=== PATIENT | female | born 1945 | race Caucasian/White ===

== ENCOUNTER 2020-05-04 13:56 | Inpatient (IN) ==
[2020-05-04] MEDS ORDERED: *HR* Atropine Sulfate 1 MG/10 ML SYRINGE ONE (16:25)
[2020-05-04] MEDS ORDERED: Ondansetron 4 MG/2 ML VIAL IVP PRN (16:38)
[2020-05-04] MEDS ORDERED: Acetaminophen 325 MG TABLET PO PRN (16:38)
[2020-05-04] MEDS ORDERED: Naloxone 0.4 MG/ML INJ IVP PRN (16:38)
[2020-05-04] MEDS ORDERED: Ringers Solution, Lactated 1,000 ML ONE ×2 (16:50→17:44)
[2020-05-04 16:57] LABS: VBG HCO3 27 mEq/L (21-27); VBG PCO2 60 mmHg (41-51); VBG PH 7.26 pH Units (7.32-7.42); VBG PO2 92 mmHg (25-50)
[2020-05-04 17:07] LABS: Basophils # 0.1 K/mcL (0.0-0.2); Basophils % 0.9 %; Eosinophils # 0.2 K/mcL (0.0-0.6); Eosinophils % 2.3 %; Hematocrit 39.7 % (35.3-44.9); Hemoglobin 12.3 g/dL (11.5-15.4); Immature Granulocytes % 0.4 % (0-4); Lymphocytes # 3.2 K/mcL (0.6-4.6); Lymphocytes % 39.2 %; Mean Corpuscular Hemoglobin 29.3 pg (28.0-33.3); Mean Corpuscular Volume 94.5 fL (83.0-100.0); Mean Platelet Volume 9.5 fL (9.4-12.4); Monocytes # 0.6 K/mcL (0.0-1.3); Monocytes % 7.7 %; Platelet Count 306 K/mcL (140-400); Red Cell Distribution Width 15.6 % (11.5-14.5); Segmented Neutrophils % 49.5 %; White Blood Count 8.1 K/mcL (4.3-11.1)
[2020-05-04 17:21] LABS: Alanine Aminotransferase 10 Units/L (7-52); Albumin 2.9 g/dL (3.5-5.7); Albumin/Globulin Ratio 1.1 (1.1-2.2); Alkaline Phosphatase 65 Units/L (34-104); Aspartate Amino Transferase 16 Units/L (13-39); BUN/Creatinine Ratio 27 (6-26); Bilirubin,Indirect 0.3 mg/dL (0.0-1.0); Bilirubin,Total 0.3 mg/dL (0.3-1.0); Blood Urea Nitrogen 13 mg/dL (8-23); Calcium 7.8 mg/dL (8.6-10.3); Carbon Dioxide 26 mEq/L (23-29); Chloride 112 mEq/L (98-107); Globulin 2.7 g/dL (2.4-3.5); Glucose 117 mg/dL (70-105); Magnesium 1.9 mg/dL (1.6-2.6); Osmolality,Calculated 299 (280-300); Potassium 3.8 mEq/L (3.5-5.1); Sodium 144 mEq/L (136-145); Total Protein 5.6 g/dL (6.4-8.9); Troponin I < 0.03 ng/mL (< 0.04); eGFR For African Americans > 60 (> 60); eGFR For Non-African Americans > 60 (> 60)
[2020-05-04 17:35] LABS: Thyroid Stimulating Hormone 4.712 mcIU/mL (0.340-5.600)
[2020-05-04] MEDS ORDERED: Hydrocortisone Sodium Succ 100 MG/2 ML VIAL IVP ONE (18:15)
[2020-05-04] MEDS ORDERED: Hydrocortisone Sodium Succ 100 MG/2 ML VIAL ONE (18:17)
[2020-05-04] MEDS ORDERED: FentaNYL (PF) 1,000 MCG/100 ML IV.SOLN IVC SCH (18:30)
[2020-05-04] MEDS ORDERED: Midazolam HCl 50 MG/100 ML IV.SOLN IVC SCH (18:30)
[2020-05-04] MEDS ORDERED: *HR* Midazolam HCl 2 MG/2 ML VIAL IVP ONE (19:19)
[2020-05-04] MEDS ORDERED: *HR* Midazolam HCl 2 MG/2 ML VIAL IV ONE (19:19)
[2020-05-04] MEDS ORDERED: *HR* Etomidate 20 MG/10 ML AMPUL IVP ONE (19:19)
[2020-05-04] MEDS ORDERED: *HR* Midazolam HCl 5 MG/5 ML VIAL IVP ONE (19:19)
[2020-05-04] MEDS ORDERED: *HR* Heparin 5,000 UNIT/ML VIAL SQ SCH (22:00)
[2020-05-05] MEDS ORDERED: Piperacillin/Tazobactam 3.375 GM in 0.9 % Sodium Chloride Mini Bag 100 ML IVPB SCH
== END 2020-05-04 19:20 | disposition short-term general hospital (02) | DRG 56 ==
LOC: 2NNU → SUATTDRO 15:51 → ICNU 20:19
PROVIDERS: ADMIT Pharmacist; ATTEND Pharmacist